=== PATIENT | female | born 1945 | race Caucasian/White ===

== ENCOUNTER 2018-05-28 19:21 | Inpatient (IN) | payer OTHER, MEDICARE ==
[~2018-05-28] VITALS: Ht 170.2 cm; Wt 68.9 kg
[2018-05-28] MEDS: PIPERACILLIN/TAZO 3.375/DEX-IS 50 ML IV SCH
[2018-05-28 19:21] VITALS: BP_SYST 134
[2018-05-28] MEDS ORDERED: ONDANSETRON HCL 4 MG/2 ML VIAL IVP ONE (19:45)
[2018-05-28] MEDS ORDERED: NACL 0.9% 1,000 ML IV ONE ×5 (19:45→23:45)
[2018-05-28 19:57] LABS: BASOPHILS % (AUTO) 0.6 % (0.0-2.0); EOSINOPHILS % (AUTO) 0.1 % (0.0-4.0); HEMATOCRIT 38.8 % (36-48); HEMOGLOBIN 12.4 g/dL (12.0-16.0); LYMPHOCYTES # (AUTO) 0.7 K/uL (1.0-5.5); LYMPHOCYTES % (AUTO) 10.9 % (20.5-51.5); MEAN CORPUSCULAR HEMOGLOBIN 33 pg (27-31); MEAN CORPUSCULAR HGB CONC 32 % (32-36); MEAN CORPUSCULAR VOLUME 104 fL (79.0-98.0); MONOCYTES # (AUTO) 0.1 K/uL (0.0-1.0); MONOCYTES % (AUTO) 1.2 % (1.7-9.3); NEUTROPHILS % (AUTO) 87.2 % (40.0-70.0); RED BLOOD CELL COUNT(AUTO) 3.72 MIL/uL (4.2-6.2); RED CELL DISTRIBUTION WIDTH 16.3 % (9.0-15.0); WHITE BLOOD COUNT (AUTO) 6.8 K/uL (4.8-10.8)
[2018-05-28 20:01] LABS: ANION GAP 12 (5-15); CALCIUM 8.5 mg/dL (8.4-11.0); CHLORIDE 104 mmol/L (98-107); CREATININE 1.16 mg/dL (0.55-1.30); GLUCOSE 105 mg/dL (70-99); POTASSIUM 3.5 mmol/L (3.5-5.1); SODIUM SERUM 138 mmol/L (136-145); UREA NITROGEN, BLOOD 24 mg/dL (8-21)
[2018-05-28 20:07] LABS: INR 1.3 (0.8-1.2); PROTHROMBIN TIME 13.2 SECS (9.5-12.5)
[2018-05-28 20:08] LABS: PLATELET COUNT (AUTO) 85 K/uL (130-430)
[2018-05-28 20:09] LABS: ALANINE AMINOTRANSFERASE 22 U/L (12-78); ALBUMIN 3.4 g/dL (3.4-4.8); ASPARTATE AMINOTRANSFERASE 42 U/L (10-37); TOTAL BILIRUBIN 1.7 mg/dL (0.0-1.0)
[2018-05-28 20:10] LABS: ALCOHOL, BLOOD < 3 mg/dL (<10)
[2018-05-28] MEDS ORDERED: ACETAMINOPHEN 650 MG SUPP.RECT RC ONE (21:00)
[2018-05-28 21:43] LABS: FREE T4 (FREE THYROXINE) 1.2 ng/dL (0.6-1.6); THYROID STIMULATING HORMONE 0.08 uIu/mL (0.34-4.82)
[2018-05-28] MEDS ORDERED: VANCOMYCIN HCL 1,000 MG in NS 250 ML IV ONE (22:45)
[2018-05-28] MEDS ORDERED: PIPERACILLIN/TAZO 3.375 GM in NS 50 ML IV ONE (22:45)
[2018-05-28] MEDS ORDERED: ASPI-1155 PO (22:49)
[2018-05-28] MEDS ORDERED: LEVO125T8 PO (22:49)
[2018-05-28] MEDS ORDERED: METO25TA3 PO (22:49)
[2018-05-28] MEDS ORDERED: APIX5TAB4 PO (22:49)
[2018-05-28] MEDS ORDERED: ATOR20TA64 PO (22:49)
[2018-05-28] MEDS ORDERED: PRO40 PO (22:49)
[2018-05-28] MEDS ORDERED: AMIO200T3 PO (22:49)
[2018-05-28 22:56] LABS: BILIRUBIN,URINE 1+ (NEGATIVE); BLOOD, URINE 2+ (NEGATIVE); CLARITY/URINE CLOUDY (CLEAR); COLOR,URINE YELLOW (YELLOW); GLUCOSE,URINE NEGATIVE (NEGATIVE); KETONES,URINE NEGATIVE (NEGATIVE); LEUKOCYTE ESTERASE ,URINE 1+ (NEGATIVE); NITRITE, URINE NEGATIVE (NEGATIVE); PROTEIN URINE 1+ (NEGATIVE)
[2018-05-28 23:00] LABS: BACTERIA,URINE MANY /HPF (None Seen); MUCUS,URINE None Seen /LPF (None Seen); WBC,URINE 50-80 /HPF (0-3)
[2018-05-28 23:04] LABS: BARBITURATE, URINE NEGATIVE (NEG <=200); BENZODIAZEPINE, URINE NEGATIVE (NEG <=150); CANNABINOID, URINE NEGATIVE (NEG <=50); COCAINE, URINE NEGATIVE (NEG <=150); METHAMPHETAMINES SCREEN,URINE NEGATIVE (NEG <=500); OPIATE, URINE NEGATIVE (NEG <=100); PHENCYCLIDINE SCREEN,URINE NEGATIVE (NEG <=25); UR TRICYCLIC ANTIDEPRESSANTS NEGATIVE (NEG <=300); URINE AMPHETAMINE NEGATIVE (NEG <=500); URINE METHADONE NEGATIVE (NEG <=200); URINE OXYCODONE SCREEN NEGATIVE (NEG <=100); URINE PROPOXYPHENE SCREEN NEGATIVE (NEG <=300)
[2018-05-28] MEDS ORDERED: PIPERACILLIN/TAZOBACTAM 3.375 GM/VIAL (ZOSYN) IV ONE (23:23)
[2018-05-28] MEDS ORDERED: VANCOMYCIN HCL 1000 MG/VIAL IV ONE (23:23)
[2018-05-28] MEDS ORDERED: DEXTROSE 50% JECT 50 ML DISP.SYRIN IVP PRN (23:30)
[2018-05-28] MEDS ORDERED: INSULIN REGULAR, HUMAN 100 UNITS/ML, 10 ML VIAL (novoLIN R) SUBCUT PRN (23:30)
[2018-05-28] MEDS: LACTULOSE 20 GM/30 ML UDC PO SCH (23:45)
[2018-05-28] MEDS ORDERED: MEROPENEM 1 GM IVPB PREMIX 50 ML IV ONE (23:45)
[2018-05-28] MEDS ORDERED: ONDANSETRON HCL 4 MG/2 ML VIAL IVP PRN (23:45)
[2018-05-28] MEDS ORDERED: MORPHINE 2 MG/ML INJ. SYRINGE IVP PRN (23:45)
[2018-05-28] MEDS ORDERED: ACETAMINOPHEN 325 MG TABLET PO PRN (23:45)
[2018-05-28] MEDS ORDERED: ALBUTEROL SULFATE 0.083% 2.5 MG/3 ML VIAL.NEB INH PRN (23:45)
[2018-05-29] VITALS (26 sets, daily range): BP systolic 80–134
[2018-05-29] MEDS ORDERED: NOREPINEPHRINE 4 MG/4 ML VIAL IV ONE ×2 (00:32→07:40)
[2018-05-29] MEDS: NOREPINEPHRINE BITARTRATE 4 MG in D5W 246 ML IV PRN ×2 (00:49→08:40)
[2018-05-29] MEDS ORDERED: PIPERACILLIN/TAZOBACTAM 3.375 GM/VIAL (ZOSYN) IV ONE (01:41)
[2018-05-29] MEDS ORDERED: MEROPENEM 500 MG VIAL IV ONE (01:45)
[2018-05-29] MEDS: NACL 0.9% 1,000 ML IV SCH ×2 (01:56→08:38)
[2018-05-29] MEDS ORDERED: RIFAXIMIN 200 MG TABLET ONE (02:34)
[2018-05-29] MEDS: RIFAXIMIN 550 MG TABLET PO SCH ×2 (02:42→08:35)
[2018-05-29] MEDS: PIPERACILLIN/TAZO 3.375/DEX-IS 50 ML IV SCH ×5 (05:55→23:58)
[2018-05-29 07:01] LABS: ANION GAP 9 (5-15); CALCIUM 7.4 mg/dL (8.4-11.0); CHLORIDE 111 mmol/L (98-107); CREATININE 0.99 mg/dL (0.55-1.30); GLUCOSE 126 mg/dL (70-99); SODIUM SERUM 143 mmol/L (136-145); UREA NITROGEN, BLOOD 23 mg/dL (8-21)
[2018-05-29 07:05] LABS: HEMATOCRIT 33.5 % (36-48); HEMOGLOBIN 10.9 g/dL (12.0-16.0); MEAN CORPUSCULAR HEMOGLOBIN 33 pg (27-31); MEAN CORPUSCULAR HGB CONC 33 % (32-36); MEAN CORPUSCULAR VOLUME 103 fL (79.0-98.0); PLATELET COUNT (AUTO) 93 K/uL (130-430); RED BLOOD CELL COUNT(AUTO) 3.27 MIL/uL (4.2-6.2); RED CELL DISTRIBUTION WIDTH 16.6 % (9.0-15.0); WHITE BLOOD COUNT (AUTO) 10.8 K/uL (4.8-10.8)
[2018-05-29 07:16] LABS: ALANINE AMINOTRANSFERASE 28 U/L (12-78); ALBUMIN 2.5 g/dL (3.4-4.8); ASPARTATE AMINOTRANSFERASE 66 U/L (10-37); TOTAL BILIRUBIN 1.5 mg/dL (0.0-1.0)
[2018-05-29 07:24] LABS: POTASSIUM 2.9 mmol/L (3.5-5.1)
[2018-05-29] MEDS: LACTULOSE 20 GM/30 ML UDC PO SCH (08:35)
[2018-05-29] MEDS ORDERED: POTASSIUM CHLORIDE 20 MEQ/PKT PACKET PO ONE (09:00)
[2018-05-29 09:53] LABS: BAND % (MANUAL) 11 % (0-6); BASOPHILS % (MANUAL) 0 % (0-2); EOSINOPHILS % (MANUAL) 0 % (0-7); LYMPHOCYTES % (MANUAL) 3 % (20-46); MONOCYTES % (MANUAL) 6 % (0-11)
[2018-05-29] MEDS: 0.45% NACL 1,000 ML IV SCH ×2 (10:10→20:10)
[2018-05-29] MEDS ORDERED: AMIODARONE HCL 200 MG TABLET PO ONE (10:30)
[2018-05-29] MEDS ORDERED: ASPIRIN 81 MG TAB.CHEW PO ONE (10:30)
[2018-05-29] MEDS ORDERED: APIXABAN 2.5 MG TABLET PO ONE (10:30)
[2018-05-29] MEDS ORDERED: NS 500 ML IV ONE (11:15)
[2018-05-29] MEDS ORDERED: GENTAMICIN 100 mg/50 mL NS 50 ML IV ONE (12:00)
[2018-05-29] MEDS: APIXABAN 2.5 MG TABLET PO SCH (20:07)
[2018-05-29] MEDS ORDERED: VANCOMYCIN HCL 1,000 MG in NS 250 ML IV SCH (21:00)
[2018-05-30] VITALS (14 sets, daily range): BP systolic 103–121
[2018-05-30] MEDS: PIPERACILLIN/TAZO 3.375/DEX-IS 50 ML IV SCH ×2 (05:27→12:09)
[2018-05-30 06:22] LABS: BASOPHILS % (AUTO) 0.3 % (0.0-2.0); EOSINOPHILS # (AUTO) 0.1 K/uL (0.0-0.4); EOSINOPHILS % (AUTO) 1.1 % (0.0-4.0); HEMATOCRIT 32.1 % (36-48); HEMOGLOBIN 10.4 g/dL (12.0-16.0); LYMPHOCYTES # (AUTO) 0.5 K/uL (1.0-5.5); LYMPHOCYTES % (AUTO) 10.4 % (20.5-51.5); MEAN CORPUSCULAR HEMOGLOBIN 34 pg (27-31); MEAN CORPUSCULAR HGB CONC 32 % (32-36); MEAN CORPUSCULAR VOLUME 104 fL (79.0-98.0); MONOCYTES # (AUTO) 0.2 K/uL (0.0-1.0); MONOCYTES % (AUTO) 5.1 % (1.7-9.3); NEUTROPHILS # (AUTO) 3.8 K/uL (1.8-7.7); PLATELET COUNT (AUTO) 67 K/uL (130-430); RED BLOOD CELL COUNT(AUTO) 3.08 MIL/uL (4.2-6.2); RED CELL DISTRIBUTION WIDTH 16.5 % (9.0-15.0); WHITE BLOOD COUNT (AUTO) 4.6 K/uL (4.8-10.8)
[2018-05-30 06:35] LABS: ALANINE AMINOTRANSFERASE 28 U/L (12-78); ALBUMIN 2.2 g/dL (3.4-4.8); ANION GAP 10 (5-15); ASPARTATE AMINOTRANSFERASE 51 U/L (10-37); CHLORIDE 111 mmol/L (98-107); CREATININE 0.68 mg/dL (0.55-1.30); GLUCOSE 69 mg/dL (70-99); POTASSIUM 3.4 mmol/L (3.5-5.1); SODIUM SERUM 142 mmol/L (136-145); TOTAL BILIRUBIN 0.9 mg/dL (0.0-1.0); UREA NITROGEN, BLOOD 20 mg/dL (8-21)
[2018-05-30 07:36] LABS: NEUTROPHILS % (AUTO) 83.1 % (40.0-70.0)
[2018-05-30] MEDS ORDERED: POTASSIUM CHLORIDE 20 MEQ TAB.PRT.SR PO ONE (09:15)
[2018-05-30] MEDS: AMIODARONE HCL 200 MG TABLET PO SCH (09:27)
[2018-05-30] MEDS: APIXABAN 2.5 MG TABLET PO SCH ×2 (09:32→21:51)
[2018-05-30] MEDS: ASPIRIN 81 MG TAB.CHEW PO SCH (09:33)
[2018-05-30] MEDS: 0.45% NACL 1,000 ML IV SCH (09:47)
[2018-05-30] MEDS ORDERED: cefTRIAXone 1 GM in D5W 50 ML IV ONE (13:45)
[2018-05-30] MEDS ORDERED: cefTRIAXone 1 GM in D5W 50 ML IV SCH (13:45)
[2018-05-31 00:42] VITALS: BP_SYST 118
[2018-05-31] MEDS: 0.45% NACL 1,000 ML IV SCH (03:25)
[2018-05-31 06:41] LABS: BASOPHILS % (AUTO) 0.4 % (0.0-2.0); HEMATOCRIT 31.3 % (36-48); LYMPHOCYTES # (AUTO) 0.9 K/uL (1.0-5.5); MEAN CORPUSCULAR HEMOGLOBIN 33 pg (27-31); MEAN CORPUSCULAR HGB CONC 32 % (32-36); MEAN CORPUSCULAR VOLUME 103 fL (79.0-98.0); MONOCYTES # (AUTO) 0.4 K/uL (0.0-1.0); MONOCYTES % (AUTO) 8.1 % (1.7-9.3); NEUTROPHILS # (AUTO) 3.3 K/uL (1.8-7.7); NEUTROPHILS % (AUTO) 70.5 % (40.0-70.0); RED BLOOD CELL COUNT(AUTO) 3.05 MIL/uL (4.2-6.2); RED CELL DISTRIBUTION WIDTH 16.8 % (9.0-15.0); WHITE BLOOD COUNT (AUTO) 4.6 K/uL (4.8-10.8)
[2018-05-31 07:32] LABS: PLATELET COUNT (AUTO) 75 K/uL (130-430)
[2018-05-31 07:56] VITALS: BP_SYST 116
[2018-05-31] MEDS: cefTRIAXone 1 GM in D5W 50 ML IV SCH (08:41)
[2018-05-31] MEDS: ASPIRIN 81 MG TAB.CHEW PO SCH (08:42)
[2018-05-31] MEDS: AMIODARONE HCL 200 MG TABLET PO SCH (08:42)
[2018-05-31] MEDS: APIXABAN 2.5 MG TABLET PO SCH ×2 (08:45→20:54)
[2018-05-31 12:00] VITALS: BP_SYST 112
[2018-05-31 16:00] VITALS: BP_SYST 115
[2018-05-31 20:05] VITALS: BP_SYST 133
[2018-06-01 00:06] VITALS: BP_SYST 122
[2018-06-01 07:57] VITALS: BP_SYST 127
[2018-06-01] MEDS: APIXABAN 2.5 MG TABLET PO SCH (08:53)
[2018-06-01] MEDS: AMIODARONE HCL 200 MG TABLET PO SCH (08:54)
[2018-06-01] MEDS: ASPIRIN 81 MG TAB.CHEW PO SCH (08:54)
[2018-06-01] MEDS: cefTRIAXone 1 GM in D5W 50 ML IV SCH (08:55)
[2018-06-01 11:00] VITALS: BP_SYST 132
== END 2018-06-01 12:00 | disposition home or self-care (01) | DRG 871 ==
LOC: SED 19:21 → SIC 23:09 → STU 05-30 10:34
PROVIDERS: ADMIT Internal Medicine; ATTEND Internal Medicine Hospice and Palliative Medicine
DX: A41.9 Sepsis, unspecified organism (principal); R65.21 Severe sepsis with septic shock; I21.A1 Myocardial infarction type 2; N10 Acute pyelonephritis; K72.90 Hepatic failure, unspecified without coma; D69.6 Thrombocytopenia, unspecified; E03.9 Hypothyroidism, unspecified; E78.5 Hyperlipidemia, unspecified; E87.6 Hypokalemia; I10 Essential (primary) hypertension; R74.0 Nonspecific elevation of levels of transaminase and lactic acid dehydrogenase [LDH]; E86.0 Dehydration; B96.20 Unspecified Escherichia coli [E. coli] as the cause of diseases classified elsewhere; R16.1 Splenomegaly, not elsewhere classified; I95.9 Hypotension, unspecified; I48.0 Paroxysmal atrial fibrillation; I48.2 Chronic atrial fibrillation; Z79.01 Long term (current) use of anticoagulants; Z82.49 Family history of ischemic heart disease and other diseases of the circulatory system; Z79.82 Long term (current) use of aspirin; Z79.899 Other long term (current) drug therapy; Z90.89 Acquired absence of other organs; Z90.49 Acquired absence of other specified parts of digestive tract
CPT/HCPCS: 36415; 70450-TC; 71045; 80053; 80307; 81000-TC; 82140-TC; 82962; 83605; 83690-TC; 83880; 84439; 84443-TC; 84484; 85007; 85025; 85027; 85610-TC; 85651-TC; 85730-TC; 86710; 87040-TC; 87081; 87086; 87186-TC; 93005; 93306; 96361; 96365; 96368; 96375; 99285; G0482; J0696; J1580; J1815; J2185; J2405; J2543; J3370; J7030; J7040; J7050; J7060